=== PATIENT | female | born 1990 | race Caucasian/White ===

== ENCOUNTER 2016-11-16 06:54 | Emergency (ER) | payer OTHER ==
[2016-11-16 07:06] VITALS: BP 100/66; PULSE 56; RESP 16; TEMP 97.7; O2SAT 97
--- NOTE | 2016-11-16 07:53 | EDPHY ---
H & P Time Seen by Provider: 11/16/16 07:47 HPI/ROS: Abdominal pain--patient feeling better an decides to leave without being seen. I did perform a medical screening exam. Smoking Status: Never smoked Constitutional: Initial Vital Signs Temperature (C) 36.5 C 11/16/16 07:02 Heart Rate 56 L 11/16/16 07:02 Respiratory Rate 16 11/16/16 07:02 Blood Pressure 100/66 11/16/16 07:02 O2 Sat (%) 97 11/16/16 07:02 O2 Delivery Mode Room Air Allergies/Adverse Reactions: No Known Allergies Allergy (Unverified 11/16/16 07:01) Home Medications: Medication Instructions Recorded NK [No Known Home Meds] 11/16/16 Departure - Departure Disposition: Left Without Being Seen Referrals: NONE *PRIMARY CARE P,. [Primary Care Provider] - As per Instructions
== END 2016-11-16 08:04 | disposition left against medical advice (07) ==
DX: Z53.21 Procedure and treatment not carried out due to patient leaving prior to being seen by health care provider (principal)